=== PATIENT | male | born 1990 | race Caucasian/White ===

== ENCOUNTER 2021-11-04 17:05 | Emergency (ER) | payer SELFPAY ==
[~2021-11-04] VITALS: Ht 177.8 cm; Wt 117.9 kg
[2021-11-04] MEDS ORDERED: CEPHALEXIN500 M1 PO (18:57)
== END 2021-11-04 19:26 | disposition home or self-care (01) ==
LOC: ED 17:05
DX: S61.432A Puncture wound without foreign body of left hand, initial encounter (principal); W26.8XXA Contact with other sharp object(s), not elsewhere classified, initial encounter; Y93.89 Activity, other specified; Y92.89 Other specified places as the place of occurrence of the external cause; Y99.8 Other external cause status

== ENCOUNTER → 2021-11-28 | Outpatient (CLI) | payer BC ==
[~2021-11-28] MED LIST: CEPHALEXIN500 M1 PO
== END | disposition home or self-care (01) ==
LOC: COVID19 16:00
PROVIDERS: ATTEND Student in an Organized Health Care Education/Training Program
DX: Z11.52 Encounter for screening for COVID-19 (principal)